=== PATIENT | male | born 2000 | race Caucasian/White ===

== ENCOUNTER 2019-07-22 21:17 | Emergency (ER) | payer OTHER ==
[~2019-07-22] VITALS: Ht 162.6 cm; Wt 72.7 kg
[~2019-07-22 21:17] MED LIST: DIPH25 PO; FLUO-191 PO
[2019-07-22] MEDS ORDERED: ALBU8HFA IH (21:33)
[2019-07-22 23:01] VITALS: BP 126/70
== END 2019-07-22 23:01 | disposition home or self-care (01) ==
LOC: EMS 21:17
DX: B34.9 Viral infection, unspecified (principal); J45.909 Unspecified asthma, uncomplicated; F32.9 Major depressive disorder, single episode, unspecified; F12.90 Cannabis use, unspecified, uncomplicated; Z79.899 Other long term (current) drug therapy

== ENCOUNTER 2021-05-29 02:34 | Emergency (ER) | payer OTHER ==
[~2021-05-29] VITALS: Ht 162.6 cm; Wt 90.9 kg
[~2021-05-29 02:34] MED LIST changes: +ALBU8HFA IH; -FLUO-191 PO
[2021-05-29] MEDS ORDERED: ALBUTEROL SULFATE HFA 90 MCG/PUFF 8 GM INHALER IH ONE (03:30)
[2021-05-29 03:31] VITALS: BP 160/92
== END 2021-05-29 03:35 | disposition home or self-care (01) ==
LOC: EMS 02:35
DX: J45.901 Unspecified asthma with (acute) exacerbation (principal); Z79.899 Other long term (current) drug therapy
CPT/HCPCS: 94640; 99283; J3535

== ENCOUNTER 2021-10-15 06:41 | Inpatient (IN) | payer MEDICAID, OTHER ==
[~2021-10-15] VITALS: Ht 162.6 cm; Wt 99.6 kg
[2021-10-15] MEDS: DiphenhydrAMINE HCL 50 MG/ML VIAL IM ONE ×2 (07:45→08:14)
[2021-10-15] MEDS: LORazepam 2 MG/ML VIAL IM ONE ×2 (07:45→08:13)
[2021-10-15] MEDS: HALOPERIDOL LACTATE 5 MG/ML VIAL IM ONE ×2 (07:46→08:14)
[2021-10-15 10:04] LABS: COVID AG,FIA SOURCE NASAL SWAB
[2021-10-15 10:55] LABS: BASOPHILS % (AUTO) 0.3 % (0.0-2.0); EOSINOPHILS % (AUTO) 0.2 % (1.0-6.0); HEMATOCRIT 47.9 % (41-53); HEMOGLOBIN 16.8 g/dL (13.5-17.5); LYMPHOCYTES # (AUTO) 1.4 K/uL (1.0-4.8); LYMPHOCYTES % (AUTO) 11.9 % (22.0-44.0); MEAN CORPUSCULAR HEMOGLOBIN 30.1 pg (26.0-34.0); MEAN CORPUSCULAR HGB CONC 35.1 G/dL (31.0-37.0); MEAN CORPUSCULAR VOLUME 86 fL (80-100); MONOCYTES # (AUTO) 0.8 K/uL (0.1-1.0); MONOCYTES % (AUTO) 6.6 % (2.0-9.0); NEUTROPHILS # (AUTO) 9.4 K/uL (1.8-7.7); PLATELET COUNT (AUTO) 294 K/uL (150-450); RED BLOOD CELL COUNT(AUTO) 5.59 MIL/uL (4.50-5.90); RED CELL DISTRIBUTION WIDTH 14.1 % (11.5-14.5)
[2021-10-15 10:57] LABS: AMPHET/METH SCREEN,URINE NEGATIVE (NEGATIVE); BARBITURATE SCREEN, URINE NEGATIVE (NEGATIVE); BENZODIAZEPINES SCREEN,URINE NEGATIVE (NEGATIVE); CANNABINOID SCREEN,URINE NEGATIVE (NEGATIVE); COCAINE SCREEN,URINE NEGATIVE (NEGATIVE); METHADONE SCREEN, URINE NEGATIVE (NEGATIVE); OPIATE SCREEN,URINE NEGATIVE (NEGATIVE); PHENCYCLIDINE SCREEN,URINE NEGATIVE (NEGATIVE)
[2021-10-15 10:58] LABS: ANION GAP 11 mmol/L (8-16); CALCIUM, TOTAL 9.2 mg/dL (8.8-10.5); CARBON DIOXIDE 25 mmol/L (22-29); CHLORIDE 98 mmol/L (98-107); CREATININE 0.94 mg/dL (0.60-1.30); GLOMERULAR FILTR. RATE CALC > 60 mL/min (>60); GLUCOSE,RANDOM 146 mg/dL (70-110); POTASSIUM 3.1 mmol/L (3.5-5.1); SODIUM SERUM 134 mmol/L (136-145); UREA NITROGEN, BLOOD 9 mg/dL (7-18)
[2021-10-15] MEDS ORDERED: HALOPERIDOL 5 MG TABLET PO PRN (11:00)
[2021-10-15] MEDS ORDERED: ZOLPIDEM TARTRATE 10 MG TABLET PO PRN (11:00)
[2021-10-15] MEDS ORDERED: BECL10.6 IH ×2 (11:01→14:55)
[2021-10-15 11:04] LABS: ALANINE AMINOTRANSFERASE 45 U/L (12-78); ALBUMIN 4.3 g/dL (3.4-5.0); ALKALINE PHOSPHATASE 96 U/L (46-116); ASPARTATE AMINOTRANSFERASE 30 U/L (15-37); TOTAL PROTEIN, SERUM 7.9 g/dL (6.4-8.2)
[2021-10-15] MEDS ORDERED: BUPR-344 PO (12:16)
[2021-10-15] MEDS: LORazepam 2 MG TABLET PO PRN (13:03)
[2021-10-15] MEDS ORDERED: POTASSIUM CHLORIDE 20 MEQ ER TABLET PO ONE (15:00)
[2021-10-15] MEDS ORDERED: LOPERAMIDE HCL 2 MG CAPSULE PO PRN (16:15)
[2021-10-15] MEDS ORDERED: BACITRACIN 28 GM OINTMENT TP PRN (16:15)
[2021-10-15] MEDS ORDERED: DOCUSATE SODIUM 100 MG CAPSULE PO PRN (16:15)
[2021-10-15] MEDS ORDERED: MAGNESIUM HYDROXIDE SUSPENSION 30 ML UDCUP PO PRN (16:15)
[2021-10-15] MEDS ORDERED: ACETAMINOPHEN 325 MG TABLET PO PRN (16:15)
[2021-10-15] MEDS ORDERED: BENZOCAINE/MENTHOL LOZENGE PO PRN (16:15)
[2021-10-15] MEDS ORDERED: ONDANSETRON HCL 4 MG TABLET PO PRN (16:15)
[2021-10-15] MEDS ORDERED: CloNIDine HCL 0.1 MG TABLET PO PRN (16:15)
[2021-10-15] MEDS ORDERED: OMEPRAZOLE 20 MG CAPSULE PO PRN (16:15)
[2021-10-15] MEDS ORDERED: PETROLATUM,WHITE 28 GM JELLY TP PRN (16:15)
[2021-10-15] MEDS ORDERED: MAG HYDROX/AL HYDROX/SIMETH ES 30 ML SUSPENSION UDCUP PO PRN (16:15)
[2021-10-15] MEDS ORDERED: IBUPROFEN 600 MG TABLET PO PRN (16:15)
[2021-10-15 16:17] VITALS: BP 128/82
[2021-10-15 23:57] VITALS: BP 135/90
[2021-10-16 08:17] VITALS: BP 116/75
[2021-10-16 09:16] LABS: ANION GAP 8 mmol/L (8-16); CALCIUM, TOTAL 9.3 mg/dL (8.8-10.5); CARBON DIOXIDE 29 mmol/L (22-29); CHLORIDE 102 mmol/L (98-107); CREATININE 0.91 mg/dL (0.60-1.30); GLUCOSE,RANDOM 108 mg/dL (70-110); POTASSIUM 3.8 mmol/L (3.5-5.1); SODIUM SERUM 139 mmol/L (136-145); UREA NITROGEN, BLOOD 10 mg/dL (7-18)
[2021-10-16 09:18] LABS: GLOMERULAR FILTR. RATE CALC > 60 mL/min (>60)
[2021-10-16] MEDS: BECLOMETHASONE DIPR HFA 40 MCG/PUFF 10.6 GM INHALER IH SCH ×3 (09:45→16:34)
[2021-10-16] MEDS: ALBUTEROL SULFATE HFA 90 MCG/PUFF 8 GM INHALER IH PRN (10:30)
[2021-10-16 16:16] VITALS: BP 145/99
[2021-10-16] MEDS: DIVALPROEX SODIUM 500 MG DR TABLET PO SCH (16:35)
[2021-10-16] MEDS: LORazepam 2 MG TABLET PO PRN (16:35)
[2021-10-16] MEDS: OLANZapine 7.5 MG TABLET PO SCH (20:04)
[2021-10-17 08:00] VITALS: BP 115/57
[2021-10-17] MEDS: BECLOMETHASONE DIPR HFA 40 MCG/PUFF 10.6 GM INHALER IH SCH ×2 (09:00→16:55)
[2021-10-17 09:12] LABS: CHOL/HDL RATIO 3.4 (4.2-7.3)
[2021-10-17] MEDS: DIVALPROEX SODIUM 500 MG DR TABLET PO SCH ×2 (09:17→15:59)
[2021-10-17] MEDS: ALBUTEROL SULFATE HFA 90 MCG/PUFF 8 GM INHALER IH PRN ×2 (13:11→20:50)
[2021-10-17] MEDS: LORazepam 2 MG TABLET PO PRN (16:00)
[2021-10-17 16:46] VITALS: BP 131/78
[2021-10-17] MEDS: OLANZapine 7.5 MG TABLET PO SCH (20:17)
[2021-10-18 08:19] VITALS: BP 155/90
[2021-10-18] MEDS: BECLOMETHASONE DIPR HFA 40 MCG/PUFF 10.6 GM INHALER IH SCH ×2 (09:00→16:34)
[2021-10-18] MEDS: ALBUTEROL SULFATE HFA 90 MCG/PUFF 8 GM INHALER IH PRN ×2 (09:39→20:32)
[2021-10-18] MEDS: DIVALPROEX SODIUM 500 MG DR TABLET PO SCH ×2 (09:40→16:34)
[2021-10-18] MEDS: LORazepam 2 MG TABLET PO PRN (15:50)
[2021-10-18 17:03] VITALS: BP 141/81
[2021-10-18] MEDS: OLANZapine 7.5 MG TABLET PO SCH (20:12)
[2021-10-19] MEDS: DIVALPROEX SODIUM 500 MG DR TABLET PO SCH ×2 (07:50→16:14)
[2021-10-19] MEDS: ALBUTEROL SULFATE HFA 90 MCG/PUFF 8 GM INHALER IH PRN ×2 (07:50→15:43)
[2021-10-19] MEDS: BECLOMETHASONE DIPR HFA 40 MCG/PUFF 10.6 GM INHALER IH SCH ×2 (08:48→15:44)
[2021-10-19 08:59] VITALS: BP 148/91
[2021-10-19] MEDS ORDERED: NICOTINE 21 MG/24 HOUR PATCH TD PRN (10:15)
[2021-10-19] MEDS: LORazepam 2 MG TABLET PO PRN (15:45)
[2021-10-19 16:27] VITALS: BP 118/77
[2021-10-19 16:28] VITALS: BP 118/77
[2021-10-19] MEDS: OLANZapine 7.5 MG TABLET PO SCH (20:07)
[2021-10-20 08:12] VITALS: BP 106/64
[2021-10-20] MEDS: BECLOMETHASONE DIPR HFA 40 MCG/PUFF 10.6 GM INHALER IH SCH (09:00)
[2021-10-20] MEDS: DIVALPROEX SODIUM 500 MG DR TABLET PO SCH (10:35)
[2021-10-20] MEDS ORDERED: DIVA-112 PO (17:15)
[2021-10-20] MEDS ORDERED: OLAN7.5T22 PO (17:15)
== END 2021-10-20 12:45 | disposition home or self-care (01) | DRG 750 ==
LOC: EMS 06:41 → 3EC 13:52
PROVIDERS: ADMIT Psychiatry & Neurology Psychiatry; ATTEND Psychiatry & Neurology Psychiatry
DX: F25.9 Schizoaffective disorder, unspecified (principal); E87.6 Hypokalemia; F12.10 Cannabis abuse, uncomplicated; F41.9 Anxiety disorder, unspecified; Z20.822 Contact with and (suspected) exposure to COVID-19; G47.00 Insomnia, unspecified; I10 Essential (primary) hypertension; J45.909 Unspecified asthma, uncomplicated; K21.9 Gastro-esophageal reflux disease without esophagitis; F19.10 Other psychoactive substance abuse, uncomplicated
CPT/HCPCS: 80048; 80053; 80061; 80164; 85025; 99285; J1200; J1630; J2060; J3535

== ENCOUNTER 2021-10-21 18:53 | Emergency (ER) | payer MEDICAID ==
[~2021-10-21] VITALS: Ht 162.6 cm; Wt 103.0 kg
[~2021-10-21 18:53] MED LIST changes: -ALBU8HFA IH; -DIPH25 PO; +DIVA-112 PO; +OLAN7.5T22 PO
[2021-10-21 19:47] LABS: BASOPHILS % (AUTO) 0.5 % (0.0-2.0); EOSINOPHILS % (AUTO) 1.2 % (1.0-6.0); HEMATOCRIT 46.9 % (41-53); HEMOGLOBIN 16.4 g/dL (13.5-17.5); LYMPHOCYTES # (AUTO) 1.9 K/uL (1.0-4.8); LYMPHOCYTES % (AUTO) 17.6 % (22.0-44.0); MEAN CORPUSCULAR HGB CONC 34.9 G/dL (31.0-37.0); MEAN CORPUSCULAR VOLUME 86 fL (80-100); MONOCYTES % (AUTO) 9.3 % (2.0-9.0); NEUTROPHILS # (AUTO) 7.7 K/uL (1.8-7.7); NEUTROPHILS % (AUTO) 71.4 % (40.0-70.0); PLATELET COUNT (AUTO) 276 K/uL (150-450); RED BLOOD CELL COUNT(AUTO) 5.46 MIL/uL (4.50-5.90); RED CELL DISTRIBUTION WIDTH 13.7 % (11.5-14.5)
[2021-10-21 19:49] LABS: ANION GAP 10 mmol/L (8-16); CALCIUM, TOTAL 9.6 mg/dL (8.8-10.5); CARBON DIOXIDE 26 mmol/L (22-29); CHLORIDE 99 mmol/L (98-107); CREATININE 1.03 mg/dL (0.60-1.30); GLOMERULAR FILTR. RATE CALC > 60 mL/min (>60); GLUCOSE,RANDOM 108 mg/dL (70-110); POTASSIUM 3.4 mmol/L (3.5-5.1); SODIUM SERUM 135 mmol/L (136-145); UREA NITROGEN, BLOOD 10 mg/dL (7-18)
[2021-10-21 19:55] LABS: ALANINE AMINOTRANSFERASE 42 U/L (12-78); ALBUMIN 4.2 g/dL (3.4-5.0); ALKALINE PHOSPHATASE 95 U/L (46-116); ASPARTATE AMINOTRANSFERASE 28 U/L (15-37); TOTAL PROTEIN, SERUM 7.9 g/dL (6.4-8.2)
[2021-10-21 20:31] LABS: AMPHET/METH SCREEN,URINE NEGATIVE (NEGATIVE); BARBITURATE SCREEN, URINE NEGATIVE (NEGATIVE); BENZODIAZEPINES SCREEN,URINE NEGATIVE (NEGATIVE); CANNABINOID SCREEN,URINE NEGATIVE (NEGATIVE); COCAINE SCREEN,URINE NEGATIVE (NEGATIVE); METHADONE SCREEN, URINE NEGATIVE (NEGATIVE); OPIATE SCREEN,URINE NEGATIVE (NEGATIVE); PHENCYCLIDINE SCREEN,URINE NEGATIVE (NEGATIVE)
[2021-10-21 21:24] VITALS: BP 129/78
== END 2021-10-21 21:40 | disposition home or self-care (01) ==
LOC: EMS 18:53
DX: F22 Delusional disorders (principal); F31.9 Bipolar disorder, unspecified; J45.909 Unspecified asthma, uncomplicated; F12.90 Cannabis use, unspecified, uncomplicated; Z79.899 Other long term (current) drug therapy
CPT/HCPCS: 36415; 80053; 80307; 85025; 99284; G0480

== ENCOUNTER 2022-01-04 11:17 | Emergency (ER) | payer OTHER ==
[~2022-01-04] VITALS: Ht 162.6 cm; Wt 104.5 kg
[2022-01-04] MEDS ORDERED: PredniSONE 20 MG TABLET PO ONE (11:30)
[2022-01-04] MEDS ORDERED: ARIP2TAB27 PO ×2 (11:43→11:44)
[2022-01-04 12:09] LABS: COVID AG,FIA SOURCE NASOPHARYNGEAL
[2022-01-04] MEDS ORDERED: ALBUTEROL SULFATE 2.5 MG/0.5 ML NEB SOLUTION NEB ONE (12:45)
[2022-01-04] MEDS ORDERED: IPRATROPIUM BROMIDE 0.5 MG/2.5 ML NEB SOLUTION NEB ONE (12:45)
[2022-01-04] MEDS ORDERED: PRED-554 PO (13:03)
[2022-01-04] MEDS ORDERED: ALBUTEROL SULFATE HFA 90 MCG/PUFF 8 GM INHALER IH ONE (13:30)
[2022-01-04 13:35] VITALS: BP 120/71
== END 2022-01-04 14:03 | disposition home or self-care (01) ==
LOC: EMS 11:31
DX: J45.909 Unspecified asthma, uncomplicated (principal); F31.9 Bipolar disorder, unspecified; F20.9 Schizophrenia, unspecified; F12.90 Cannabis use, unspecified, uncomplicated; Z20.822 Contact with and (suspected) exposure to COVID-19
CPT/HCPCS: 99285; 71045; 87426; 94640; J7512; 99284; J3535; J7613

== ENCOUNTER 2022-02-17 00:34 | Emergency (ER) | payer OTHER ==
[~2022-02-17] VITALS: Ht 162.6 cm; Wt 100.0 kg
[~2022-02-17 00:34] MED LIST changes: +ARIP2TAB27 PO; -DIVA-112 PO; +PRED-554 PO
[2022-02-17] MEDS ORDERED: IPRATROPIUM BROMIDE 0.5 MG/2.5 ML NEB SOLUTION NEB ONE (01:15)
[2022-02-17] MEDS ORDERED: ALBUTEROL SULFATE 5 MG/ML 20 ML NEB SOLN [BULK] NEB ONE (01:15)
[2022-02-17] MEDS ORDERED: PredniSONE 20 MG TABLET PO ONE (01:15)
[2022-02-17] MEDS ORDERED: PRED-554 PO (02:46)
[2022-02-17] MEDS ORDERED: ALBUTEROL SULFATE HFA 90 MCG/PUFF 8 GM INHALER IH ONE (03:15)
[2022-02-17 03:55] VITALS: BP 105/77
== END 2022-02-17 04:10 | disposition home or self-care (01) ==
LOC: EMS 00:36
DX: J45.909 Unspecified asthma, uncomplicated (principal); F31.9 Bipolar disorder, unspecified; F20.9 Schizophrenia, unspecified; F12.90 Cannabis use, unspecified, uncomplicated
CPT/HCPCS: 99291; 94644; 94645; J7512; 99285; J3535

== ENCOUNTER 2022-03-18 21:53 | Emergency (ER) | payer OTHER ==
[~2022-03-18] VITALS: Ht 162.6 cm; Wt 86.4 kg
[2022-03-18] MEDS ORDERED: PRED-554 PO (23:20)
[2022-03-18] MEDS ORDERED: HALO10TA21 PO (23:21)
[2022-03-18] MEDS ORDERED: DIPH50CA35 PO (23:22)
[2022-03-19 00:05] VITALS: BP 118/70
== END 2022-03-19 00:52 | disposition home or self-care (01) ==
LOC: EMS 21:55
DX: G25.9 Extrapyramidal and movement disorder, unspecified (principal); F20.9 Schizophrenia, unspecified; F31.9 Bipolar disorder, unspecified; F10.20 Alcohol dependence, uncomplicated; F12.90 Cannabis use, unspecified, uncomplicated; J45.909 Unspecified asthma, uncomplicated
CPT/HCPCS: 99281; 99283

== ENCOUNTER 2022-10-28 06:53 | Emergency (ER) | payer OTHER ==
[~2022-10-28] VITALS: Ht 162.6 cm; Wt 86.4 kg
[~2022-10-28 06:53] MED LIST changes: +DIPH50CA35 PO; +HALO10TA21 PO
[2022-10-28 07:00] VITALS: TEMP 98.1
[2022-10-28] MEDS ORDERED: ALBUTEROL SULFATE HFA 90 MCG/PUFF 8 GM INHALER IH ONE (07:15)
[2022-10-28 07:21] VITALS: PULSE 84; RESP 16; O2SAT 97
[2022-10-28 07:22] VITALS: PULSE 84; RESP 16; O2SAT 97
[2022-10-28 07:55] VITALS: BP 129/77; PULSE 82; RESP 16
== END 2022-10-28 07:58 | disposition home or self-care (01) ==
LOC: EMS 06:56
DX: J45.901 Unspecified asthma with (acute) exacerbation (principal); F31.9 Bipolar disorder, unspecified; F20.9 Schizophrenia, unspecified; F12.90 Cannabis use, unspecified, uncomplicated; Z98.890 Other specified postprocedural states
CPT/HCPCS: 99283; 94640; J3535

== ENCOUNTER 2023-01-16 16:44 | Emergency (ER) | payer OTHER ==
[~2023-01-16] VITALS: Ht 167.6 cm; Wt 81.0 kg
[~2023-01-16 16:44] MED LIST changes: +ALBU18HF12 IH; +CETI-193 PO
[2023-01-16 17:05] VITALS: TEMP 99.7
[2023-01-16] MEDS ORDERED: ACETAMINOPHEN 500 MG TABLET PO ONE (17:30)
[2023-01-16] MEDS ORDERED: KETOROLAC TROMETHAMINE 30 MG/ML VIAL IVP ONE (17:30)
[2023-01-16 19:00] VITALS: BP 122/86; PULSE 89; RESP 16
[2023-01-16] MEDS ORDERED: IBUPROFEN 600 MG TABLET PO ONE (19:00)
== END 2023-01-16 19:12 | disposition home or self-care (01) ==
LOC: EMS 16:44
DX: S00.03XA Contusion of scalp, initial encounter (principal); S00.83XA Contusion of other part of head, initial encounter; J45.909 Unspecified asthma, uncomplicated; F31.9 Bipolar disorder, unspecified; F20.9 Schizophrenia, unspecified; F12.90 Cannabis use, unspecified, uncomplicated; Z98.890 Other specified postprocedural states; Y04.8XXA Assault by other bodily force, initial encounter; Y93.89 Activity, other specified; Y92.098 Other place in other non-institutional residence as the place of occurrence of the external cause; Y99.8 Other external cause status
CPT/HCPCS: 99285; 96374; 70450; J1885